=== PATIENT | female | born 1945 | race Caucasian/White ===

== ENCOUNTER 2016-10-20 15:55 | Inpatient (IN) | payer OTHER ==
--- NOTE | ~2016-10-20 | CN ---
Consultation Report [facility] [address] [place]. [address] NAME: BEN PEREIRA : 47 STATUS : ADM IN [facility]#: [id number] AGE: 70 ADM/REG DATE : 10/20/16 MR#: [id number] REPORT SERV DATE: 10/24/16 DICTATED BY: DATE: REPORT STATUS : Draft TRANSCRIBED BY: MODL DATE: 10/24/16 NEUROLOGY CONSULTATION DATE OF CONSULTATION: 10/24/2016 REASON FOR CONSULT: Loss of consciousness episode. HISTORY OF PRESENT ILLNESS: This is a 70-year-old female who presented to [facility] [place] on 10/20/2016, as the patient was found barely responsive on the floor with rhabdomyolysis. The patient recalls she had a fall, possibly passing out episodes with the patient does not remember detail of the episode. The patient does have roughly [id number] episodes over the past year of loss of consciousness episode with the family thinks the episodes are usually associated with blood pressure falls as well as possible hypoglycemic episodes. The patient reports episodes are usually brief lasting a few seconds with the patient returning to consciousness almost immediately but was noted to have mild drowsiness afterwards for a few minutes. The patient and family members deny any current dysarthria, dysphagia, language difficulties, or weakness. The patient does have limited range of motion in bilateral upper and lower extremity secondary to arthritis with the patient noted to have baseline ambulating with a walker. The patient was also noted to have decreased blood pressure at night by family members. No recent illness, fever, chills, nausea, vomiting, chest pain, or shortness of breath was otherwise reported prior to the hospitalization. No recent change in medication was otherwise noted. PAST MEDICAL HISTORY: Significant for history of COPD with nocturnal oxygen dependent as well as history of hypertension, diabetes, depression, and osteoarthritis. The patient takes methotrexate at home. The patient, in addition, was also noted to have peripheral vascular disease with stent placement, currently on Plavix. The patient also was noted to have baseline gait abnormalities with the patient ambulates with a walker. SOCIAL HISTORY: The patient reports continued tobacco usage but denies alcohol or recreational drug usage. FAMILY HISTORY: Significant for cancer. REVIEW OF SYSTEMS: Negative except for those mentioned in the HPI. ALLERGIES: THE PATIENT WAS NOTED TO HAVE ALLERGY TO PENICILLIN WELL CODEINE. MEDICATIONS: The patient's home medications consist of Lipitor, Coreg, Plavix, Neurontin, Lopid, Glucophage, and methotrexate. PHYSICAL EXAMINATION: VITAL SIGNS: At the time of evaluation, the patient was noted to have vital signs overnight Consultation Report [facility] [id number] [place]. [address] NAME: BEN PEREIRA : 47 STATUS : ADM IN [facility]#: [id number] AGE: 70 ADM/REG DATE : 10/20/16 MR#: [id number] REPORT SERV DATE: 10/24/16 DICTATED BY: DATE: REPORT STATUS : Draft TRANSCRIBED BY: MODL DATE: 10/24/16 with a T-max of 98.2, heart rate of 60 to 96, respirations of 15 to 26, and blood pressure of 97 to 146 over 51 to 71. GENERAL: The patient is well developed, well nourished, in no acute distress. CARDIOVASCULAR: Regular rate and rhythm. No carotid bruits was otherwise auscultated. PULMONARY: Examination was clear to auscultation bilaterally. NEUROLOGICAL: Generally, the patient is alert and oriented to person, place, year, and month. Follows simple and two-step commands. No dysarthria. No aphasia was otherwise reported. Intact registration, mild difficulties with recall. Family denies any chronic memory difficulties. The patient was noted to have cranial nerves II to XII, pupils equal, round, and reactive to light. Extraocular eye movement was noted to be intact with intact peripheral vision by [id number] response. Mild symmetric facial asymmetry but otherwise was noted to have symmetrical facial expression. Midline tongue. Normal palatal movement. Reported symmetrical facial sensation. The patient was noted to have decreased range of movement in the bilateral upper extremity, shoulder as well as bilateral lower extremity, hip with family reports range of motion is about the same as the patient's baseline. The patient reports decreased sensation in the right upper extremity. 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 No clear dysmetria or ataxia was noted on finger- to-nose examination. Diminished reflexes throughout. Downgoing toe on bilateral plantar reflexes. The patient was noted to have 2/5 bilateral lower extremity strength at the time of evaluation. LABORATORY STUDIES: Demonstrated white blood cell count of 13.3, hemoglobin of 11.4, hematocrit of 33.5, and platelet count of 175. Chemistry panel: Sodium 140, potassium 3.5, chloride 103, bicarb 29, BUN of 7, creatinine 0.47, glucose of 121, and calcium of 7.5. Urinalysis demonstrated trace leukocyte esterase, negative nitrite. At the time of evaluation, CT scan of the brain was reviewed which demonstrated generalized atrophy, but otherwise no acute process was seen. IMPRESSION: Loss of consciousness episode. The patient reports roughly 4 to 5 episodes over a year. The patient, at this time, is concerned for possible orthostasis. We will check orthostatic vital signs as well as MRI of the brain. EEG. No seizure medication is currently recommended. The patient does have an echocardiogram performed with EF of 45% but otherwise no significant other pathology. RECOMMENDATIONS: 1. MRI of the brain without contrast. 2. EEG. 3. Orthostatic vitals. 4. Ammonia, vitamin B12, folate, thiamine with morning labs. 5. No AED recommendation at this time. [facility]/MODL Consultation Report [address] [place]. [address] NAME: BRANDI PEREIRAIETTE SRIDHAR : 47 STATUS : ADM IN [facility]#: [id number] AGE: 70 ADM/REG DATE : 10/20/16 MR#: [id number] REPORT SERV DATE: 10/24/16 DICTATED BY: DATE: REPORT STATUS : Draft TRANSCRIBED BY: BIRGIT DATE: 10/24/16 Santiago Nicole MD / [id number] CC: DO DANGELO Boyd
--- NOTE | ~2016-10-20 | DS ---
Discharge Summary [facility] [place]. [address] NAME: BEN PEREIRA : 47 STATUS : DIS IN PAT#: [id number] AGE: 70 ADM/REG DATE : 10/20/16 MR#: [id number] REPORT SERV DATE: 10/28/16 DICTATED BY: JAKE QUEVEDO DATE: 10/27/16 REPORT STATUS : Draft TRANSCRIBED BY: MODEdgar DATE: 10/27/16 ADMISSION DATE: 10/20/2016 DISCHARGE DATE: 10/27/2016 PRINCIPAL DIAGNOSIS: Syncope. SECONDARY DIAGNOSIS: 1. Traumatic rhabdomyolysis with hip ulcer. 2. Hyponatremia. 3. Wide-complex tachycardia consistent with aberrant atrial fibrillation. 4. Type 2 diabetes. 5. Chronic obstructive pulmonary disease. 6. Urinary tract infection without sepsis. 7. Hypertension. 8. Generalized weakness. HISTORY OF PRESENT ILLNESS: Please see Dr. Ponce's dictation of 10/20/2016. HOSPITAL COURSE: The patient was admitted after a syncopal event during which time she was on the ground for greater than a day, found to have rhabdomyolysis with acute renal insufficiency. She received intravenous hydration with improvement there. A neurological workup was negative. Echocardiogram showed ejection fraction of 45%. Did have some episodes of irregular wide-complex tachycardia without fusion beats most consistent with aberrant atrial fibrillation more so than ventricular tachyarrhythmias. Her carvedilol was increased with no further events. The main issue for her was weakness and difficulty participating in physical therapy, but she did in fact participate and was accepted at [facility] on 10/27/2016. Eating better, moving her bowels satisfactorily, and in satisfactory condition. She will see Physical Therapy per facility with following medications: Eliquis 5 mg b.i.d., methotrexate weekly with folic acid supplements, Lipitor 20, and Plavix 75. The patient had finished her antibiotic therapy. Carvedilol 6.25 b.i.d., metformin b.i.d., vitamin B12, nicotine patch. Followed by Mehreen Chatterjee in one to two weeks following discharge from [facility] and with Dr. Seb Rene at the first available appointment regarding the tachyarrhythmias for further workup thereof. Greater than 30 minutes spent in the care of this patient and discharge planning on discharge day. [facility]/BIRGIT Jake Quevedo M.D. / [id number] Discharge Summary [facility] [address] [place]. [address] NAME: BEN PEREIRA SRIDHAR : 47 STATUS : DIS IN PAT#: [id number] AGE: 70 ADM/REG DATE : 10/20/16 MR#: [id number] REPORT SERV DATE: 10/28/16 DICTATED BY: JAKE QUEVEDO DATE: 10/27/16 REPORT STATUS : Draft TRANSCRIBED BY: BIRGIT DATE: 10/27/16 CC: Xuan Carranza [facility] Seb Rene MD
--- NOTE | ~2016-10-20 | HP ---
History And Physical [facility] [address] [address] [facility] [place]. [address] NAME: BEN PETERSON : 47 STATUS : ADM Lew PAT#: [id number] AGE: 70 ADM/REG DATE : 10/20/16 MR#: [id number] REPORT SERV DATE: 10/21/16 DICTATED BY: JUAN LUIS GREEN DATE: 10/21/16 REPORT STATUS : Draft TRANSCRIBED BY: MODL DATE: 10/21/16 DATE OF ADMISSION: 10/20/2016 CHIEF COMPLAINT: Fall at home. HISTORY OF PRESENT ILLNESS: This is a 70-year-old female who lives by herself, has a history of COPD, hypertension, diabetes, depression, and peripheral vascular disease; was found lying on the floor in her house today. History is obtained from the patient, but mostly from the family and reviewing data available on the [employer] system as well. According to available data, Mrs. Peterson has been in her usual state of health and according to her grandson, who had spoken to her last on Monday she had been doing just fine. Since Monday nobody has spoken to her or seen her. She gets food from [employer] and they had been knocking on her door for the last two days without any response. Today, they got concerned and called the police as she was not responding to their calls and they found her lying on floor. At that time, she was almost unresponsive. The patient was subsequently brought to the emergency room to be evaluated. Here she was given IV fluids and she appeared to be perking up. She was able to say what had happened although she was not clear what actually happened. She knew she had fallen down. She remembers she was unable to get up and laid there for more than 2 days. In the emergency room, initial workup revealed she indeed had rhabdomyolysis and also had a urinary tract infection and Hospitalist Service advised to admit her for further evaluation and treatment. At the time of my evaluation, she denied any chest pain or palpitations. She had no recent history of cough, hemoptysis, night sweats, or weight loss. She has not had any loss of consciousness that she knows. She denied any recent fevers, chills, nausea, vomiting, diarrhea, hematemesis, hematochezia, or hematuria. No other history of recent travel or exposures other than those mentioned above. PAST MEDICAL HISTORY: Significant for history of COPD with nocturnal oxygen dependence, history of hypertension, diabetes mellitus, depression, osteoarthritis. She has also had appendectomy and tubal ligation. She also has peripheral vascular disease with stent placement and is currently on Plavix. SOCIAL HISTORY: She has about 50-pack year history of smoking and continues to do so although she has cut back quite a bit. She denied any recreational drug use or alcohol use. FAMILY HISTORY: Noncontributory. MEDICATIONS: At home were reviewed by me in the chart today and reordered by me. REVIEW OF SYSTEMS: As in history of present illness. All other systems were reviewed in detail and are quite unremarkable. History And Physical [address] [address] NAME: BEN PETERSON : 47 STATUS : ADM Lew PAT#: [id number] AGE: 70 ADM/REG DATE : 10/20/16 MR#: [id number] REPORT SERV DATE: 10/21/16 DICTATED BY: JUAN LUIS GREEN DATE: 10/21/16 REPORT STATUS : Draft TRANSCRIBED BY: BIRGIT DATE: 10/21/16 PHYSICAL EXAMINATION: GENERAL: This is a pleasant 70-year-old, not in any acute distress. HEENT: Her head is atraumatic, normocephalic. She is alert and awake, oriented to place and person. Pupils are equal, reacting to light and accommodating. External ocular muscles are intact. Membranes are moist and pink. Sclerae are nonicteric. NECK: Supple with no jugular venous distention, lymphadenopathy, or thyromegaly. LUNGS: Clear to auscultation with no wheezes, rubs, or crackles. There were few expiratory wheezes. HEART: Auscultation of her heart revealed normal rate and rhythm with no murmurs, rubs, or gallops. ABDOMEN: Soft, nontender. Bowel sounds are present. EXTREMITIES: Showed no cyanosis, clubbing, or edema. NEURO: Grossly intact. No focal sensory or motor deficits. Higher functions appeared intact. VITAL SIGNS: Her vital signs today showed temperature of 98.4, pulse was 90, respirations were 18 a minute, blood pressure was 134/92, and oxygen saturations were 99% breathing 2 L of oxygen via nasal cannula. LABORATORY DATA: Reviewed on the [employer] system showed a pH of 7.35, pCO2 was 40, PaO2 of 90, and bicarb was 21.3. This was on 3 L of oxygen via nasal cannula. Sodium was 126 today, potassium 3.8, chloride 93, and CO2 of 24, BUN was 29 with a creatinine of 0.74 and glucose was 156. [place] [address], hemoglobin was 16.7, hematocrit 46.6, and platelet count was 233,000. Her prothrombin time was 15.7 with an INR of 1.3 today. Urinalysis revealed large leukocyte esterase. Nitrite was negative. There were 25 wbcs and 22 rbcs. There was large blood. A 12-lead EKG done in the emergency room was reviewed and interpreted by me. Sinus rhythm with a rate of 93 and occasional PVCs. Films of the chest x-ray were reviewed by me on the PACS today and interpreted by me. Other films done here were also reviewed including the right shoulder, right hip, and x-ray of the pelvis. No abnormalities were seen in any of them. IMPRESSION: 1. Fall at home. 2. Rhabdomyolysis. 3. Pressure ulcers on right shoulder, right hip secondary to the fall. 4. Sepsis by criteria. 5. Urinary tract infection. 6. Chronic obstructive pulmonary disease with nocturnal oxygen dependence. 7. Hypertension. 8. Diabetes mellitus type 2. 9. Peripheral vascular disease with stents, on Plavix. PLAN: We will admit Mrs. Peterson to the Hospitalist Service with telemetry for a 24-hour observation period. We will start her on aggressive fluid replacement. Check urinalysis, myoglobin urine in the morning. We will get a CT scan of her head now to rule out any acute intracranial pathology. She has been on Plavix. We will check cultures, start her on empiric IV antibiotics and continue aggressive volume replacement. We will also go ahead History And Physical [address] [address] NAME: BEN PETERSON SRIDHAR : 47 STATUS : ADM Lew PAT#: [id number] AGE: 70 ADM/REG DATE : 10/20/16 MR#: [id number] REPORT SERV DATE: 10/21/16 DICTATED BY: JUAN LUIS GREEN DATE: 10/21/16 REPORT STATUS : Draft TRANSCRIBED BY: BIRGIT DATE: 10/21/16 and check her procalcitonin level. We will start her on bronchodilator treatments. Continue her supplemental oxygen therapy. Blood sugars will be controlled by a NovoLog given subcutaneously per sliding scale and we will go ahead and check her A1c as well. We will also get Wound Care to evaluate her pressure ulcers, and we will also get a TSH level. For now, we will start her on SCDs for DVT prophylaxis. I have discussed the above plans with the patient and the family, questions were answered, they are agreeable to the above recommendations. Hospitalist Service will be following her during her stay here. /BIRGIT Juan Luis Green M.D. / [id number] CC: Mateo Hoffman Jr, MD
--- NOTE | ~2016-10-20 | EEG ---
Electroencephalogram [facility] [address] [place]. [address] NAME: BEN PEREIRA : 47 STATUS : ADM IN PAT#: [id number] AGE: 70 ADM/REG DATE : 10/20/16 MR#: [id number] REPORT SERV DATE: 10/24/16 DICTATED BY: DATE: REPORT STATUS : Draft TRANSCRIBED BY: MODL DATE: 10/24/16 CLINICAL INDICATION: Loss of consciousness episode. DESCRIPTION: This EEG was performed using 10/20 electrode placement system. During the EEG study, symmetric background activity was noted with predominant occipital rhythm of 11-12 hertz. Photic stimulation was performed with appropriate driving response. Hyperventilation was not performed secondary to the patient's underlying medical condition. The patient achieved drowsy state during the EEG study. During the EEG study, muscle artifact was seen especially during the beginning of the study. The patient achieved stage I and II sleep with appropriate sleep spindles as well as K-complexes. No focal abnormalities, seizure activity, or seizure discharge was otherwise noted. INTERPRETATION: This EEG study obtained during awake and drowsy as well as stage I and II sleep may be considered within normal limits. No focal abnormalities, seizure activity, or seizure discharge was noted. Normal EEG does not preclude diagnosis of seizure disorder. Clinical correlation is recommended. [facility]/BIRGIT Santiago Nicole MD / [id number] CC: DO AHMET Boyd CINDY MARIE
[~2016-10-20 15:55] MED LIST: AMARYL2 PO; ASAB PO; CHOLECALCIFEROL PO; COMBIVENT RESPIM4 GM INH; COREG3 PO; GLUCOPHAGE1000 MG PO; LIPITOR10 PO; LIPITOR20 PO; LOPID6 PO; MTX2.5 PO; NEUR100 PO; PLAVIX PO; SPIRIVA INH
[2016-10-20] MEDS ORDERED: COREG3 PO (15:57)
[2016-10-20] MEDS ORDERED: NEUR100 PO (15:57)
[2016-10-20] MEDS ORDERED: LOPID6 PO (15:58)
[2016-10-20] MEDS ORDERED: PLAVIX PO (15:58)
[2016-10-20] MEDS ORDERED: GLUCOPHAGE1000 MG PO (15:58)
[2016-10-20] MEDS ORDERED: MTX2.5 PO (15:59)
[2016-10-20] MEDS ORDERED: LIPITOR10 PO (15:59)
[2016-10-20 17:06] LABS: CARBOXYHEMOGLOBIN 1.8 % (0-3); DEVICE NC; HCO3 (ACTUAL BICARBONATE) 21.3 MEQ/L (23-27); INSTRUMENT SERIAL # 8087; METHEMOGLOBIN 0.4 % (0-3); O2 CONTENT 22.7 VOL% (18-24); OPERATOR ID 18801; PCO2 (CO2 TENSION) 40 MMHG (35-45); PO2 (O2 TENSION) 90 MMHG (79-93); SAMPLE Arterial; pH 7.35 (7.37-7.43)
[2016-10-20 17:51] LABS: BASOPHILS 0.2 %; BASOPHILS ABSOLUTE 0.04 10/3/uL (0.0-0.16); EOSINOPHILS 0 %; EOSINOPHILS ABSOLUTE 0.01 10/3/uL (0.0-0.53); HEMATOCRIT 46.6 % (36.0-48.0); HEMOGLOBIN 16.7 g/dL (12.0-16.0); IMMATURE GRANULOCYTES 0.6 %; IMMATURE GRANULOCYTES ABSOLUTE 0.14 10/3/uL (0.0-0.11); LYMPHOCYTES 6.7 %; LYMPHOCYTES ABSOLUTE 1.66 10/3/uL (0.67-4.30); MEAN CORPUSCULAR HEMOGLOB 29.3 pg (26.0-34.0); MEAN PLATELET VOLUME 9.9 fL (9.2-13.0); MONOCYTES 14.3 %; MONOCYTES ABSOLUTE 3.53 10/3/uL (0.21-1.20); NEUTROPHILS 78.2 %; NEUTROPHILS ABSOLUTE 19.28 10/3/uL (2.02-8.40); PLATELET COUNT 233 10/3/uL (150-400); RBC DISTRIBUTION WIDTH 15.3 % (12.0-16.0); RED CELL COUNT 5.69 10/6/uL (4.0-5.6)
[2016-10-20 17:52] LABS: MANUAL DIFF NO %; MEAN CORPUS HGB CONC 35.8 g/dL (32.0-36.0); MEAN CORPUSCULAR VOLUME 81.9 fL (80-100); WHITE BLOOD CELLS 24.7 10/3/uL (4.5-10.5)
[2016-10-20 18:01] LABS: ASCORBIC ACID (UR NOT ORDER) NEG (NEG); BILIRUBIN, URINE NEGATIVE (NEG); ER URINALYSIS TAT 0 Hrs 13 Mins; KETONE, URINE NEGATIVE (NEG); LEUKOCYTE ESTERASE(NOT OR NEG (NEG); NITRITE (URINE) NEG (NEG); WBC (NOT ORDERED) (RFLEX) 20 (0-5)
[2016-10-20 18:02] LABS: PARTIAL THROMBO TIME 28.6 SEC (22.5-37.2)
[2016-10-20 18:04] LABS: INTERNATIONAL NORMAL RATI 1.3 UNITS (-)
[2016-10-20 18:10] LABS: PROTIME (NOT ORD) 15.7 SEC (12.0-14.5)
[2016-10-20 18:11] LABS: LACTATE 1.9 MMOL/L (0.3-2.4)
[2016-10-20 18:23] LABS: ALKALINE PHOSPHATASE 88 U/L (45-117); CREATININE 0.74 MG/DL (0.55-1.02); DIRECT BILIRUBIN 0.9 MG/DL (0.0-0.4); GFR AFRICAN AMERICAN 96 ML/MIN (>=60); GFR NON AFRICAN AMERICAN 83 ML/MIN (>=60); MYOGLOBIN, SERUM 7316 NG/ML (0-85); SGPT(ALT) 41 U/L (5-65); TOTAL PROTEIN 7.6 G/DL (6.0-8.5)
[2016-10-20 18:24] LABS: SODIUM, SERUM 126 MMOL/L (135-148)
[2016-10-20 18:25] LABS: ALBUMIN 3.2 G/DL (3.5-5.0); BUN (BLOOD UREA NITROGEN) 29 MG/DL (6-23); CHLORIDE, SERUM 93 MMOL/L (96-112); CO2 (CARBON DIOXIDE) 24 MMOL/L (24-34); GLUCOSE, SERUM 156 MG/DL (60-99); INDIRECT BILIRUBIN(NOT ORDER) 1.5 MG/DL (0.1-0.9); POTASSIUM, SERUM 3.8 MMOL/L (3.5-5.3); SGOT(AST) 135 U/L (5-40); TOTAL BILIRUBIN 2.4 MG/DL (0-1.2); TROPONIN I 0.06 NG/ML (<0.05)
[2016-10-20 18:26] LABS: CPK (IF ELEVATED MB BANDS) 5618 U/L (0-200)
[2016-10-20 18:27] LABS: CHEST PAIN PROFILE TAT 0 Hrs 24 Mins
[2016-10-20 19:02] LABS: CK-MB 54.3 NG/ML
[2016-10-21 05:13] LABS: HEMATOCRIT 44.9 % (36.0-48.0); HEMOGLOBIN 16.1 g/dL (12.0-16.0); MEAN CORPUS HGB CONC 35.9 g/dL (32.0-36.0); MEAN CORPUSCULAR HEMOGLOB 29.8 pg (26.0-34.0); MEAN CORPUSCULAR VOLUME 83.1 fL (80-100); PLATELET COUNT 143 10/3/uL (150-400); RBC DISTRIBUTION WIDTH 15.6 % (12.0-16.0); WHITE BLOOD CELLS 23.7 10/3/uL (4.5-10.5)
[2016-10-21 05:14] LABS: MANUAL DIFF NO %
[2016-10-21 05:34] LABS: CALCIUM, SERUM 7.7 MG/DL (8.5-10.4); CHLORIDE, SERUM 97 MMOL/L (96-112); CO2 (CARBON DIOXIDE) 26 MMOL/L (24-34); CREATININE 0.82 MG/DL (0.55-1.02); FREE T4 1.34 NG/DL (0.76-1.46); GFR AFRICAN AMERICAN 85 ML/MIN (>=60); GFR NON AFRICAN AMERICAN 73 ML/MIN (>=60); PHOSPHORUS, SERUM 3.4 MG/DL (2.5-4.5); POTASSIUM, SERUM 3.9 MMOL/L (3.5-5.3); SODIUM, SERUM 132 MMOL/L (135-148)
[2016-10-21 05:35] LABS: BUN (BLOOD UREA NITROGEN) 36 MG/DL (6-23); GLUCOSE, SERUM 123 MG/DL (60-99)
[2016-10-21 06:41] LABS: LYMPHOCYTES 9 %; LYMPHOCYTES ABSOLUTE (CALC) 2.13 10/3/uL (0.67-4.30); MONOCYTES 12 %; MONOCYTES ABSOLUTE (CALC) 2.84 10/3/uL (0.21-1.20); NEUTROPHILS ABSOLUTE (CALC) 18.72 10/3/uL (2.02-8.40); SEGMENTED NEUTROPHIL (0) 79 %; TOTAL NUCLEATED CELLS 100
[2016-10-21 06:42] LABS: PLATELET ESTIMATE SLT DEC (ADEQUATE); RBC MORPHOLOGY NORM (NORMAL)
[2016-10-21 16:07] LABS: ASCORBIC ACID (UR NOT ORDER) NEG (NEG); BILIRUBIN, URINE NEGATIVE (NEG); KETONE, URINE NEGATIVE (NEG); WBC (NOT ORDERED) (RFLEX) 12 (0-5)
[2016-10-21 16:08] LABS: LEUKOCYTE ESTERASE(NOT OR TRACE (NEG)
[2016-10-22 06:37] LABS: BUN (BLOOD UREA NITROGEN) 20 MG/DL (6-23); CALCIUM, SERUM 7.4 MG/DL (8.5-10.4); CHLORIDE, SERUM 101 MMOL/L (96-112); CO2 (CARBON DIOXIDE) 24 MMOL/L (24-34); CPK 3652 U/L (0-200); CREATININE 0.72 MG/DL (0.55-1.02); GFR AFRICAN AMERICAN 99 ML/MIN (>=60); GFR NON AFRICAN AMERICAN 85 ML/MIN (>=60); GLUCOSE, SERUM 164 MG/DL (60-99); POTASSIUM, SERUM 3.7 MMOL/L (3.5-5.3); SODIUM, SERUM 134 MMOL/L (135-148)
[2016-10-23 04:47] LABS: BASOPHILS 0.3 %; BASOPHILS ABSOLUTE 0.04 10/3/uL (0.0-0.16); EOSINOPHILS 1.7 %; EOSINOPHILS ABSOLUTE 0.26 10/3/uL (0.0-0.53); IMMATURE GRANULOCYTES 0.3 %; IMMATURE GRANULOCYTES ABSOLUTE 0.04 10/3/uL (0.0-0.11); LYMPHOCYTES 13.7 %; LYMPHOCYTES ABSOLUTE 2.08 10/3/uL (0.67-4.30); MEAN CORPUSCULAR HEMOGLOB 28.5 pg (26.0-34.0); MEAN CORPUSCULAR VOLUME 84.6 fL (80-100); MEAN PLATELET VOLUME 10.1 fL (9.2-13.0); MONOCYTES 9.8 %; MONOCYTES ABSOLUTE 1.49 10/3/uL (0.21-1.20); NEUTROPHILS 74.2 %; NEUTROPHILS ABSOLUTE 11.31 10/3/uL (2.02-8.40); PLATELET COUNT 158 10/3/uL (150-400); RBC DISTRIBUTION WIDTH 15.5 % (12.0-16.0); WHITE BLOOD CELLS 15.2 10/3/uL (4.5-10.5)
[2016-10-23 04:59] LABS: CALCIUM, SERUM 7.6 MG/DL (8.5-10.4); CHLORIDE, SERUM 101 MMOL/L (96-112); GFR AFRICAN AMERICAN 123 ML/MIN (>=60); GFR NON AFRICAN AMERICAN 106 ML/MIN (>=60); GLUCOSE, SERUM 139 MG/DL (60-99); POTASSIUM, SERUM 3.5 MMOL/L (3.5-5.3); SODIUM, SERUM 138 MMOL/L (135-148)
[2016-10-23 05:01] LABS: BUN (BLOOD UREA NITROGEN) 7 MG/DL (6-23); CO2 (CARBON DIOXIDE) 29 MMOL/L (24-34)
[2016-10-23 05:06] LABS: HEMATOCRIT 34.7 % (36.0-48.0); HEMOGLOBIN 11.7 g/dL (12.0-16.0); MEAN CORPUS HGB CONC 33.7 g/dL (32.0-36.0)
[2016-10-23 05:08] LABS: MANUAL DIFF NO %
[2016-10-24 04:28] LABS: BASOPHILS 0.3 %; BASOPHILS ABSOLUTE 0.04 10/3/uL (0.0-0.16); EOSINOPHILS 2.6 %; EOSINOPHILS ABSOLUTE 0.34 10/3/uL (0.0-0.53); HEMATOCRIT 33.5 % (36.0-48.0); HEMOGLOBIN 11.4 g/dL (12.0-16.0); IMMATURE GRANULOCYTES 0.3 %; IMMATURE GRANULOCYTES ABSOLUTE 0.04 10/3/uL (0.0-0.11); LYMPHOCYTES 15.4 %; LYMPHOCYTES ABSOLUTE 2.05 10/3/uL (0.67-4.30); MEAN CORPUSCULAR HEMOGLOB 29.1 pg (26.0-34.0); MEAN CORPUSCULAR VOLUME 85.5 fL (80-100); MEAN PLATELET VOLUME 9.7 fL (9.2-13.0); MONOCYTES 9.6 %; MONOCYTES ABSOLUTE 1.27 10/3/uL (0.21-1.20); NEUTROPHILS 71.8 %; NEUTROPHILS ABSOLUTE 9.53 10/3/uL (2.02-8.40); PLATELET COUNT 175 10/3/uL (150-400); RBC DISTRIBUTION WIDTH 15.2 % (12.0-16.0); RED CELL COUNT 3.92 10/6/uL (4.0-5.6); WHITE BLOOD CELLS 13.3 10/3/uL (4.5-10.5)
[2016-10-24 04:29] LABS: MANUAL DIFF NO %
[2016-10-24 05:02] LABS: BUN (BLOOD UREA NITROGEN) 7 MG/DL (6-23); CALCIUM, SERUM 7.5 MG/DL (8.5-10.4); CHLORIDE, SERUM 103 MMOL/L (96-112); CO2 (CARBON DIOXIDE) 29 MMOL/L (24-34); CREATININE 0.47 MG/DL (0.55-1.02); GFR AFRICAN AMERICAN 117 ML/MIN (>=60); GFR NON AFRICAN AMERICAN 101 ML/MIN (>=60); GLUCOSE, SERUM 121 MG/DL (60-99); POTASSIUM, SERUM 3.5 MMOL/L (3.5-5.3); SODIUM, SERUM 140 MMOL/L (135-148)
[2016-10-25 06:44] LABS: BUN (BLOOD UREA NITROGEN) 10 MG/DL (6-23); CALCIUM, SERUM 8.1 MG/DL (8.5-10.4); CHLORIDE, SERUM 100 MMOL/L (96-112); CO2 (CARBON DIOXIDE) 32 MMOL/L (24-34); CREATININE 0.51 MG/DL (0.55-1.02); GFR AFRICAN AMERICAN 114 ML/MIN (>=60); GFR NON AFRICAN AMERICAN 98 ML/MIN (>=60); GLUCOSE, SERUM 121 MG/DL (60-99); POTASSIUM, SERUM 3.8 MMOL/L (3.5-5.3); SODIUM, SERUM 138 MMOL/L (135-148)
[2016-10-25 06:45] LABS: CPK 509 U/L (0-200)
[2016-10-26 05:08] LABS: BUN (BLOOD UREA NITROGEN) 11 MG/DL (6-23); CALCIUM, SERUM 8.5 MG/DL (8.5-10.4); CHLORIDE, SERUM 102 MMOL/L (96-112); CO2 (CARBON DIOXIDE) 29 MMOL/L (24-34); CREATININE 0.54 MG/DL (0.55-1.02); GFR AFRICAN AMERICAN 112 ML/MIN (>=60); GFR NON AFRICAN AMERICAN 96 ML/MIN (>=60); GLUCOSE, SERUM 126 MG/DL (60-99); POTASSIUM, SERUM 4.4 MMOL/L (3.5-5.3); SODIUM, SERUM 138 MMOL/L (135-148)
[2016-10-28 23:03] LABS: THIAMINE 5.2 nmol/L (()); THIAMINE MONOPHOSPHATE 0.8 nmol/L (())
== END 2016-10-27 16:55 | DRG 565 ==
LOC: ER 15:55 → CDU1 20:49 → CDU2 21:24 → 1SO 10-24 00:41
PROVIDERS: Hospitalist; Internal Medicine; Internal Medicine Pulmonary Disease; Psychiatry & Neurology Neurology
DX: T79.6XXA Traumatic ischemia of muscle, initial encounter (principal); R65.10 Systemic inflammatory response syndrome (SIRS) of non-infectious origin without acute organ dysfunction; I50.42 Chronic combined systolic (congestive) and diastolic (congestive) heart failure; E87.1 Hypo-osmolality and hyponatremia; N39.0 Urinary tract infection, site not specified; L89.119 Pressure ulcer of right upper back, unspecified stage; L89.219 Pressure ulcer of right hip, unspecified stage; I11.0 Hypertensive heart disease with heart failure; Z99.81 Dependence on supplemental oxygen; I48.91 Unspecified atrial fibrillation; M06.9 Rheumatoid arthritis, unspecified; Z88.5 Allergy status to narcotic agent; J44.9 Chronic obstructive pulmonary disease, unspecified; E11.9 Type 2 diabetes mellitus without complications; N28.9 Disorder of kidney and ureter, unspecified; I73.9 Peripheral vascular disease, unspecified; F32.9 Major depressive disorder, single episode, unspecified; F17.210 Nicotine dependence, cigarettes, uncomplicated; W18.30XA Fall on same level, unspecified, initial encounter; K59.00 Constipation, unspecified; Z79.01 Long term (current) use of anticoagulants; Z79.84 Long term (current) use of oral hypoglycemic drugs; Z79.899 Other long term (current) drug therapy; I25.2 Old myocardial infarction; Z86.73 Personal history of transient ischemic attack (TIA), and cerebral infarction without residual deficits; Z88.0 Allergy status to penicillin
CPT/HCPCS: 36600; 70450; 70551; 71010; 72141; 72170; 73030-RT; 73502-RT; 80048; 80076; 81001; 82140; 82550; 82553; 82607; 82746; 82805; 82962; 83605; 83735; 83874; 84100; 84145; 84425; 84439; 84443; 84484; 85025; 85610; 85730; 86140; 87040; 93005; 94640; 95819; 96374; 96375; 97110-GP; 97116-GP; 97162-GP; 97165-GO; 97530-GP; 99285; A9270-GY; C8929; J1170; J2405; J8610; Q9957